=== PATIENT | female | born 1960 | race African-American/Black ===

== ENCOUNTER 2017-01-08 08:41 | Outpatient (CLI) | payer OTHER ==
--- NOTE | 2017-01-08 14:26 | Mammography Report ---
BILATERAL DIGITAL SCREENING MAMMOGRAM with CAD: 01/08/17 08:41:00 CLINICAL: Routine screening. COMPARISON:09/18/15 FINDINGS: The breasts are almost entirely fatty.Bilateral biopsy clips. No mass, architectural distortion or suspicious calcifications. IMPRESSION: No mammographic evidence of malignancy. BI-RADS CATEGORY: 2 - - Benign RECOMMENDATION: Routine mammographic screening in one year. COMMENT: Patient follow-up letters are generated by our [employer] application.
== END 2017-01-08 08:42 | disposition home or self-care (01) ==
LOC: SPVWC 08:41
PROVIDERS: ATTEND Internal Medicine
DX: Z12.31 Encounter for screening mammogram for malignant neoplasm of breast (principal)
CPT/HCPCS: 77067; G0202